=== PATIENT | male | born 1975 | race African-American/Black ===

== ENCOUNTER 2019-11-24 15:03 | Emergency (ER) | payer OTHER ==
[2019-11-24] MEDS ORDERED: ASPIRIN CHEW 81 MG TABLET PO STA (15:14)
[2019-11-24] MEDS ORDERED: KETOROLAC 30 MG/ML VIAL IVP STA (15:14)
--- NOTE | 2019-11-24 15:19 | ED Physician Documentation ---
PD HPI CHEST PAIN - Stated complaint Stated Complaint: CP - History obtained from History obtained from: Patient - Additional information Additional information: This is a very healthy 44-year-old gentleman with no personal or family history of heart disease. He is a runner and after going for a fairly long run on Monday (2 days ago), several hours later developed left upper anterior nonradiating chest pain which does not change with deep breathing or movement. It has been constant ever since. It is not associated with shortness of breath or cough. No associated pedal edema or calf pain. No recent travel. Review of Systems Ten Systems: 10 systems reviewed and negative Constitutional: denies: Fatigue Cardiac: reports: Chest pain / pressure. denies: Palpitations, Pedal edema, Calf pain Respiratory: denies: Dyspnea, Cough, Hemoptysis, Wheezing GI: denies: Abdominal Pain PD PAST MEDICAL HISTORY - Past Medical History Past Medical History: No - Allergies Allergies/Adverse Reactions: Allergies Allergy/AdvReac Type Severity Reaction Status Date / Time No Known Drug Allergies Allergy Verified 11/24/19 15:20 - Social History Does the pt smoke?: No Does the pt have substance abuse?: No - Family History Family history: reports: Non contributory. denies: CAD PD ED PE NORMAL - Vitals Vital signs reviewed: Yes - General General: Alert and oriented X 3, No acute distress - HEENT HEENT: PERRL, EOMI - Neck Neck: Supple, no meningeal sign, No bony TTP - Cardiac Cardiac: RRR, No murmur - Respiratory Respiratory: No respiratory distress, Clear bilaterally - Abdomen Abdomen: Non tender - Derm Derm: Normal color, Warm and dry - Extremities Extremities: No edema, No calf tenderness / cord - Neuro Neuro: Alert and oriented X 3, Normal speech Results - Vitals Vitals: Vital Signs - 24 hr 11/24/19 15:21 Temperature 36.8 C Heart Rate 47 L Respiratory 16 Rate Blood Pressure 131/87 H O2 Saturation 99 Oxygen O2 Source Room air - EKG (time done) 1511 Rate: Rate (enter#) (50) Rhythm: NSR [place]: Normal QRS: LVH Ischemia: Non specific changes, Other (changes prob c/w "athlete's heart) Computer interpretation: Agree with computer - Labs Labs: Laboratory Tests 07/05/20 07/05/20 07/05/20 15:13 15:13 15:13 WBC 4.7 L RBC 5.20 Hgb 14.8 Hct 45.9 MCV 88.3 MCH 28.5 MCHC 32.2 RDW 12.5 Plt Count 140 MPV 12.4 H Neut # (Auto) 1.5 Lymph # (Auto) 2.7 [place] # (Auto) 0.4 Eos # (Auto) 0.2 Baso # (Auto) 0.0 Absolute Nucleated RBC 0.00 Nucleated RBC % 0.0 Sodium 134 L Potassium 4.0 Chloride 98 L Carbon Dioxide 29 Anion Gap 7.0 BUN 17 Creatinine 1.1 Estimated GFR (MDRD) 73 L Glucose 102 H Calcium 9.1 Total Bilirubin 1.3 H AST 34 ALT 29 Alkaline Phosphatase 70 Troponin I High Sens 8.1 Total Protein 6.8 Albumin 4.1 Globulin 2.7 Albumin/Globulin Ratio 1.5 Lipase 44 - Rads (name of study) 1v chest Radiology: EMP read contemporaneously (NAD) PD MEDICAL DECISION MAKING - ED course ED course: I considered pulmonary embolism in this patient. Clinically the pretest probability of pulmonary embolism is less than 15%. I applied to the PERC rules as follows: The patient's age is under 50, heart rate less than 100, oxygen saturation greater than 94%, the patient does not have a history of DVT or PE. Patient has no recent trauma or surgery. The patient has no hemoptysis. The patient is not on exogenous estrogens. The patient does not have clinical signs suggesting DVT. As such the patient ruled out for pulmonary embolism by PERC criteria. HEART score 1 Departure - Departure Disposition: 01 Home, Self Care Clinical Impression: Atypical chest pain Condition: Good Record reviewed to determine appropriate education?: Yes Instructions: ED Chest Pain Atypical Unkn Cause Comments: Call your doctor to arrange a follow-up appointment, make the next available appointment. In the interim, return anytime if worse or if new symptoms develop. Forms: Activity restrictions
[2019-11-24 15:27] LABS: BASOPHILS % (AUTO) 0.6 %; EOSINOPHILS # (AUTO) 0.2 10^3/uL (0.0-0.7); EOSINOPHILS % (AUTO) 3.2 %; HGB - HEMOGLOBIN 14.8 g/dL (14.0-18.0); LYMPHOCYTES # (AUTO) 2.7 10^3/uL (1.5-3.5); LYMPHOCYTES % (AUTO) 57.4 %; MEAN CORPUSCULAR HEMOGLOBIN 28.5 pg (27.0-31.0); MEAN CORPUSCULAR HGB CONC 32.2 g/dL (32.0-36.0); MEAN CORPUSCULAR VOLUME 88.3 fL (80.0-94.0); MEAN PLATELET VOLUME 12.4 fL (7.4-11.4); MONOCYTES # (AUTO) 0.4 10^3/uL (0.0-1.0); MONOCYTES % (AUTO) 7.7 %; NEUTROPHILS # (AUTO) 1.5 10^3/uL (1.5-6.6); NEUTROPHILS % (AUTO) 30.9 %; PLT - PLATELET COUNT 140 10^3/uL (130-450); RED CELL DISTRIBUTION WIDTH 12.5 % (12.0-15.0); WHITE BLOOD COUNT 4.7 x10^3/uL (4.8-10.8)
--- NOTE | 2019-11-24 15:34 | XRAY Report ---
PROCEDURE: Chest 1 View X-Ray INDICATIONS: CP TECHNIQUE: One view of the chest was acquired. COMPARISON: None FINDINGS: Surgical changes and devices: None. Lungs and pleura: No pleural effusions or pneumothorax. Lungs are clear. Mediastinum: Mediastinal contours appear normal. Heart size is normal. Bones and chest wall: No suspicious bony lesions. Overlying soft tissues appear unremarkable. IMPRESSION: No evidence acute pulmonary process. Reviewed by: Alan Alanis MD on 11/24/2019 2:33 PM AKDT Approved by: Alan Alanis MD on 11/24/2019 2:33 PM AKDT Station ID: [id number]
[2019-11-24 15:37] LABS: ALBUMIN 4.1 g/dL (3.2-5.5); ALBUMIN/GLOBULIN RATIO 1.5 (1.0-2.2); BILIRUBIN,TOTAL 1.3 mg/dL (0.2-1.0); CALCIUM 9.1 mg/dL (8.5-10.3); CREATININE 1.1 mg/dL (0.6-1.2); TOTAL PROTEIN 6.8 g/dL (6.7-8.2)
[2019-11-24 16:15] VITALS: BP 127/82
== END 2019-11-24 16:00 | disposition home or self-care (01) ==
LOC: ED 15:03
DX: R07.89 Other chest pain (principal)
CPT/HCPCS: 36415; 71045; 80053; 83690; 84484; 85025; 93005; 96374; 99284; A9270